=== PATIENT | female | born 1985 | race Caucasian/White ===

== ENCOUNTER 2016-08-29 07:21 | Emergency (ER) | payer OTHER ==
[~2016-08-29] VITALS: Ht 154.9 cm; Wt 44.5 kg
--- NOTE | 2016-08-29 07:41 | NUR ---
pt is in room #2b. dr somers evaluated the pt.
[2016-08-29] MEDS ORDERED: KETOROLAC TROMETHAMINE 30 MG INJ IM ONE (07:45)
[2016-08-29] MEDS ORDERED: KETOROLAC TROMETHAMINE 30 MG INJ ONE (07:56)
[2016-08-29] MEDS ORDERED: NEOMY/BACITRA/POLYMYXIN B OINT UD PACKET TP ONE ×2 (08:45→08:56)
--- NOTE | 2016-08-29 08:51 | NUR ---
pt was d/c to home. d/c instructions given to the pt. gait is stable. pt denies pain.
[2016-08-29 08:52] VITALS: BP 123/74
== END 2016-08-29 08:55 | disposition home or self-care (01) ==
LOC: ER 07:21
DX: S99.912A Unspecified injury of left ankle, initial encounter (principal); S79.911A Unspecified injury of right hip, initial encounter; S79.921A Unspecified injury of right thigh, initial encounter; V03.00XA Pedestrian on foot injured in collision with car, pick-up truck or van in nontraffic accident, initial encounter; Y93.89 Activity, other specified; Y99.8 Other external cause status; Y92.89 Other specified places as the place of occurrence of the external cause
CPT/HCPCS: 73502; 73551; 96372; 99284; A4663; J1885